=== PATIENT | female | born 1950 | race Caucasian/White ===

== ENCOUNTER 2017-01-03 10:43 | Emergency (ER) | payer BC ==
--- NOTE | 2017-01-03 12:03 | ER NURSING DOCUMENTATION ---
Nurse's Notes [facility] Name:Anastacia Mcfarlane Age:66 yrs Sex:Female :1950 Arrival Date:01/03/2017 Time:10:43 Bed6 Private MD:Melodie Acevedo Diagnosis:Colles Fracture Presentation: 01/03 10:46 Presenting complaint:. lc 10:46 Acuity: BIN 3 10:48 Presenting complaint: Patient states: fell on wood floors last nite playing soccer with lc grandchild and injuryed left wrist. Skin intact, does have deformity and CSM intact. Denies LOC, neck pain or other injury. Transition of care: Home. 10:48 Method Of Arrival: Walk In Triage Assessment: 10:52 General: Appears in no apparent distress, Behavior is cooperative, pleasant. Pain: Complains of pain in left wrist Pain currently is 1 out of 10 on a pain scale. At worst was 8 out of 10 on a pain scale. Quality of pain is described as aching, throbbing, Pain began 1 day ago. Neuro: Level of Consciousness is awake, alert, Oriented to person, place, time, event. Musculoskeletal: Circulation, motion, and sensation intact Capillary refill < 3 seconds Range of motion limited in left wrist Bony deformity noted of left wrist Swelling present in left wrist. Injury Description: R/O FX. Historical: - Allergies: No known drug Allergies; - Home Meds: 1. Triamterene-Hydrochlorothiazid Oral 2. Potassium Chloride Oral - PMHx: None; - PSHx: None; - Tetanus: < 10 years. - Ebola Screening: : No symptoms or risks identified at this time. . - Immunization history: Flu Vaccine < 1 year. - Social history: Smoking status: Patient states was never smoker of tobacco. Screenin:55 Infectious Disease Risk None. Abuse screen: Denies threats or abuse. Denies injuries lc from another. Nutritional screening: No deficits noted. Assessment: 10:55 See Triage Assessment done by same RN. Vital Signs: 10:54 BP 119 / 75; Pulse 72; Resp 16; Temp 98.2; Pulse Ox 94% on R/A; Weight 86.18 kg; Height 5 ft. 5 in. (165.10 cm); Pain 2/10; 12:00 Pain 1/10; lc 10:54 Body Mass Index 31.62 (86.18 kg, 165.10 cm) ED Course: 10:46 Patient arrived in ED. arc 10:46 Melodie Acevedo DO is Private Physician. arc 10:46 Mariaelena Hoffmann, RN is Primary Nurse. lc 10:47 Triage completed. lc 10:56 Valuables Remains with patient Patient has correct armband on for positive lc identification. Bed in low position. Call light in reach. Adult w/ patient. Ice pack to injury. Elevated left arm. 10:59 WRIST; [place] [id number] In Process Unspecified. EDMS 10:[address] [place] [id number] In Process Unspecified. EDMS 11:00 Port Xray Completed. pm1 11:04 Humberto Henriquez MD is Attending Physician. jm 11:09 WRIST; [place] [id number] Sent. pm1 11:[address] [place] [id number] Sent. pm1 11:35 Baron Gooden MD, Zoltan Elam DO is Referral Physician. jm 11:44 Assist Provider Splinting csm intact after. Sling applied to left arm. lc 11:55 WRIST; [place] [id number] In Process Unspecified. EDMS 11:[address] [place] [id number] In Process Unspecified. EDMS Administered Medications: No medications were administered Outcome: 11:42 Discharge ordered by . 12:00 Discharged to home ambulatory, with family. 12:00 Condition: good 12:00 Discharge Assessment: Patient awake, alert and oriented x 3. No cognitive and/or functional deficits noted. Patient verbalized understanding of disposition instructions. 12:00 Discharge instructions given to patient, significant other, Instructed on discharge instructions, follow up and referral plans. medication usage, [facility] Demonstrated understanding of instructions, medications, Prescriptions given X 1, for norco 12:03 Patient left the ED. Signatures: Dispatcher [employer] EDMS Mariaelena Hoffmann, SALVADOR RN Humberto Rodríguez MD MD jm McBride, Philisha pm1 Gracie Collazo, Reg Reg arc
--- NOTE | 2017-01-03 12:03 | ER PHYSICIAN DOCUMENTATION ---
Physician Documentation [facility] Name:Anastacia Mcfarlane Age:66 yrs Sex:Female :1950 Arrival Date:01/03/2017 Time:10:43 Bed6 Private MD:Melodie Acevedo ED, John Disposition: 01/03/17 11:42 Discharged to Home/Self Care. Impression: Colles Fracture. - Condition is Good. - Discharge Instructions: COLLES FRACTURE, No Reduction Required. - Prescriptions for Hydrocodone- Acetaminophen 5-325 mg Oral - take 1 tablet by ORAL route every 6 hours As needed; 15 tablet. - Medical Reconciliation form form. - Follow up: Baron Gooden MD, Zoltan Elam, ; When: Tomorrow; Reason: Continuance of care. - Problem is new. - Symptoms have improved. HPI: 01/03 11:00 This 66 yrs old Female presents to ER via Walk In with complaints of Wrist jm Injury. 11:00 The patient or guardian reports injury, pain, swelling, tenderness. The complaints jm affect the left wrist diffusely. Context: resulted from a fall, on an outstretched hand. Onset: The symptom(s)/episode began/occurred yesterday. Associated signs and symptoms: Pertinent negatives: numbness distally, tingling distally. The patient has not experienced similar symptoms in the past. Historical: - Allergies: No known drug Allergies; - Home Meds: 1. Triamterene-Hydrochlorothiazid Oral 2. Potassium Chloride Oral - PMHx: None; - PSHx: None; - Tetanus: < 10 years. - Ebola Screening: : No symptoms or risks identified at this time. . - Immunization history: Flu Vaccine < 1 year. - Social history: Smoking status: Patient states was never smoker of tobacco. ROS: 11:00 Constitutional: Negative for fever, malaise. jm 11:00 Cardiovascular: Positive for chest pain, orthopnea. 11:00 Respiratory: Negative for cough, shortness of breath. 11:00 MS/extremity: Positive for swelling, tenderness. 11:00 Skin: Positive for swelling. Exam: 11:00 Hand exam: ROM: limited active range of motion due to pain, limited passive range of jm motion due to pain. 11:00 Constitutional: The patient appears alert, awake. 11:00 Skin: Appearance: Color: pink, swelling, noted on the left wrist, no rash present. Vital Signs: 10:54 BP 119 / 75; Pulse 72; Resp 16; Temp 98.2; Pulse Ox 94% on R/A; Weight 86.18 kg; Height lc 5 ft. 5 in. (165.10 cm); Pain 2/10; 12:00 Pain 1/10; lc 10:54 Body Mass Index 31.62 (86.18 kg, 165.10 cm) Procedures: 11:00 Splinting: Splint applied to left arm and left wrist using splint. applied by nurse. timothy Examined by me, post splint application: neurovascular intact, brisk capillary refill noted, Patient tolerated well. MDM: 11:00 Differential diagnosis: closed fracture, contusion. Data reviewed: vital signs, nurses timothy notes, radiologic studies, and as a result, I will discharge patient. Counseling: I had a detailed discussion with the patient and/or guardian regarding: the historical points, exam findings, and any diagnostic results supporting the discharge/admit diagnosis, radiology results, the need for outpatient follow up, a orthopedic surgeon. Response to treatment: the patient's symptoms have markedly improved after treatment. ED course: Pt w intraarticular distal radius fx. Pt can f/u w Dr. Gooden this week. . 11:04 Patient medically screened. timothy 01/03 10:59 Order name: WRIST; [place] [id number] EDMA 01/03 10:59 Order name: [place] [id number] EDMS 01/05 11:19 Order name: WRIST; [place] [id number] EDMS Dispensed Medications: No medications were administered Signatures: Mariaelena Hoffmann, SALVADOR RN Humberto Rodríguez MD MD jm
--- NOTE | 2017-01-05 09:14 | RADIOLOGY REPORT ---
Four views of the left wrist demonstrate a comminuted, slightly impacted interarticular fracture of the left distal radius. There is no significant angulation. The ulna and carpus appear intact. No other abnormality is identified. IMPRESSION: Mildly impacted, comminuted interarticular fracture of the left distal radius. MTDD
== END 2017-01-03 12:03 | disposition home or self-care (01) ==
LOC: ER 10:43
DX: S52.532A Colles' fracture of left radius, initial encounter for closed fracture (principal); W19.XXXA Unspecified fall, initial encounter; Z79.899 Other long term (current) drug therapy
CPT/HCPCS: 29125; 99283

== ENCOUNTER 2017-01-05 08:29 | Day surgery (SDC) | payer BC ==
[2017-01-05] MEDS ORDERED: ceFAZolin 1 GM in NORMAL SALINE MINI-BAG+ 100 ML IV ONE (08:36)
[2017-01-05] MEDS ORDERED: ceFAZolin 1 GM/10 ML VIAL ONE (08:54)
[2017-01-05] MEDS ORDERED: LIDOCAINE HCL 1% 20 ML VIAL SUBCUT ONE ×3 (08:56→09:01)
[2017-01-05] MEDS ORDERED: MIDAZOLAM HCL 2 MG/2 ML SYR IV ONE ×2 (08:58→09:01)
[2017-01-05] MEDS ORDERED: HYDROmorphone HCL 1 MG/ML SYR IV PRN (08:59)
[2017-01-05] MEDS ORDERED: MORPHINE SULFATE 10 MG/ML SYR IV PRN ×2 (08:59→09:01)
[2017-01-05] MEDS ORDERED: FENTANYL 100 MCG/2 ML VIAL IV PRN ×2 (08:59→09:01)
[2017-01-05] MEDS ORDERED: LACTATED RINGERS 1,000 ML IV SCH ×5 (09:00→09:01)
[2017-01-05] MEDS ORDERED: ACETAMINOPHEN 1,000 MG/100 ML VIAL IV SCH ×3 (09:00→09:01)
[2017-01-05] MEDS ORDERED: FAMOTIDINE IN SALINE, ISO-OSM 20 MG/50 ML PIGGYBACK IV SCH ×2 (09:00→09:01)
[2017-01-05] MEDS ORDERED: MIDAZOLAM HCL 2 MG/2 ML VIAL ONE (09:15)
[2017-01-05] MEDS ORDERED: BUPIVACAINE HCL/PF 0.25% 10 ML VIAL INJ ONE (09:18)
[2017-01-05] MEDS ORDERED: ONDANSETRON HCL 4 MG/2 ML VIAL ONE (09:28)
[2017-01-05] MEDS ORDERED: KETOROLAC TROMETHAMINE 30 MG/ML VIAL ONE (09:29)
[2017-01-05] MEDS ORDERED: ROCURONIUM BROMIDE 50 MG/5 ML VIAL IV ONE (09:29)
[2017-01-05] MEDS ORDERED: DEXAMETHASONE 4 MG/ML VIAL ONE ×2 (09:29→10:44)
[2017-01-05] MEDS ORDERED: SUGAMMADEX SODIUM 200 MG/2 ML VIAL IV ONE (09:29)
[2017-01-05] MEDS ORDERED: SUCCINYLCHOLINE CHLORIDE 200 MG/10 ML VIAL ONE (09:29)
[2017-01-05 11:45] VITALS: TEMP 97
[2017-01-05] MEDS: HYDROmorphone HCL 1 MG/ML SYR IV PRN ×2 (11:59→12:07)
[2017-01-05] MEDS ORDERED: HYDROmorphone HCL 1 MG/ML SYR ONE (12:00)
[2017-01-05 12:15] VITALS: RESP 15
[2017-01-05 12:33] VITALS: BP 144/82; PULSE 56; O2SAT 93
--- NOTE | 2017-01-05 15:17 | OPERATIVE REPORT ---
DATE OF SURGERY: 01/05/17 SURGEON: Baron Gooden MD PREOPERATIVE DIAGNOSIS: Comminuted intra-articular fracture of the left distal radius. POSTOPERATIVE DIAGNOSIS: Comminuted intra-articular fracture of the left distal radius. PROCEDURE PERFORMED: Open reduction, internal fixation. IMPLANTS USED: Acumed locking volar distal radius plate. INDICATIONS FOR PROCEDURE: The patient is a 66-year-old female who fell onto her left nondominant outstretched hand, sustaining a comminuted intra-articular fracture of the distal radius. Due to the clearly unstable nature of the fracture, the patient was taken to the operating room for open reduction and internal fixation. DESCRIPTION OF PROCEDURE: After informed consent was obtained, the patient was taken to the operating room where she placed in the supine position under general anesthesia. After adequate anesthesia was achieved, the left hand and upper extremity were prepped and draped in the usual sterile fashion, the limb was elevated and gently milked but not exsanguinated, a tourniquet was then inflated about the proximal arm to 250 mmHg. A longitudinal incision was then performed over the flexor carpi radialis tendon, and then the underlying soft tissue was gently but sharply dissected down through the tendon sheath. The tendon was then retracted and the forearm fascia was gently incised. Blunt dissection was then carried out down to the pronator quadratus which was released from its tendinous attachment radially, and retracted ulnarly. The fracture site was then exposed, and a provisional closed reduction had already been performed. We gently debrided the fracture and then irrigated the wound with copious amounts of sterile saline. C-arm fluoroscopy was used to verify proper alignment of the fracture, and then a plate was positioned on the volar aspect of the distal radius. Once proper position was achieved it was provisionally held using K-wires. It was then secured proximally using a 3.5 mm cortical screw. Again C-arm fluoroscopy was used to verify proper position of the plate and alignment of the fracture. It was then secured distally using the 2.3 mm screws, using C-arm fluoroscopy to check the length of each screw as it was placed. Once it was completely secured distally, the plate was then secured proximally using 2 additional 3.5 mm screws. Once again the alignment was checked with C-arm fluoroscopy and then the wound was irrigated once again with copious amounts of sterile saline. The pronator quadratus was then reapproximated using 0 Vicryl, and then the subcutaneous tissue was closed using 3-0 Vicryl. The skin was then closed using 4-0 nylon in a running fashion. A sterile gauze dressing and well padded volar splint were then applied. The patient tolerated the procedure well and was taken to the recovery room in stable condition. ESTIMATED BLOOD LOSS: Minimal. FLUIDS: Lactated Ringers, 900 mL. TOURNIQUET TIME: 63 minutes. MTDD
--- NOTE | 2017-01-07 09:05 | RADIOLOGY REPORT ---
Two limited views of the left wrist from the C-Arm in the operating room are compared with prior films dated 01/03/2017. There has been interval open reduction and internal fixation of the distal radius fracture which is secured with a plate and multiple screws. No other change is identified. IMPRESSION: Interval open reduction and internal fixation of the left distal radius fracture. [facility]
--- NOTE | 2017-01-15 15:18 | PREOPERATIVE H&P ---
History of Present Illness (Baron Gooden MD; 01/04/2017 2:51 PM) History of present illness: The patient is a 66-year-old female who was playing soccer indoors with one of her grandchildren, when she slipped on the floor and landed on her left nondominant outstretched hand. She had immediate pain but did not seek treatment right away. The wrist is still bothering her the next morning, so she went into the emergency department at which time it was noted that she had an intra-articular fracture of her distal radius. She was placed in a sugar tong splint at that time and has come in for further evaluation and management. She denies any other injuries associated with her fall. Allergies (Baron Gooden MD; 01/04/2017 2:44 PM) No Known Drug Allergies Family History (Baron Gooden MD; 01/04/2017 2:44 PM) *NEGATIVE for Family History of Diabetes or thyroid disease. Colon Cancer Maternal grandfather. Carotid Disease (I77.9) First Degree Relatives. Father (carotid endarterectomy at age 77). Coronary Artery Disease First Degree Relatives. Mother (diagnosed at age 76). Social History (Baron Gooden MD; 01/04/2017 2:44 PM) Tobacco use Never smoker. Alcohol use Drinks Rarely. 1-2 drinks per week on the weekend. 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. Exercise 3-4 times per week (lifting weights, walking). Marital status . Alber. No Drug Use Nutrition Weight Watcher's Diet. Residency Status Full-time [place] resident. Medication History (Baron Gooden MD; 01/04/2017 2:44 PM) Triamterene-HCTZ (75-50MG Tablet, 1 (one) Oral daily, Taken starting 11/20/2015 ) Active. Adult Aspirin EC Low Strength ([address], 1 Oral daily, Taken starting 04/04) Active. Multi-Vitamin (1 Oral, Taken starting 04/04/2008) Active. (Centrum Silver) Zolpidem Tartrate (10MG Tablet, (one half) to 1 (one) Oral at bedtime, as needed, Taken starting 12/19/2013) Discontinued. Klor-Con 10 (10MEQ Tablet ER, 1 (one) Oral daily, Taken starting 04/08/2016) Active. Omeprazole (20MG Capsule DR, 1 Oral two times daily, Taken starting 06/13/2014 ) Active. ZyrTEC Allergy (10MG Capsule, 1 (one) Tablet Oral daily, Taken starting 2013) Active. Phentermine HCl (30MG Capsule, 1 (one) Oral 1 po daily (1-2 h after breakfast) , Taken starting 03/12/2016) Active. Red Yeast Rice (Oral daily) Specific dose unknown - Active. Vitamin D3 (1000UNIT Tablet, Oral daily) Active. Melatonin (Oral nightly as needed) Specific dose unknown - Discontinued. Ibuprofen (400MG Tablet, 2 Oral as needed) Discontinued. Medications Reconciled Vitals (Baron Gooden MD; 01/04/2017 2:42 PM) 01/04/2017 2:40 PM Weight: 195 lb Height: 65in Weight was reported by patient. Body Surface Area: 1.96 m Body Mass Index: 32.45 kg/m Temp.: 98F Pulse: 68 (Regular) Resp.: 16 (Unlabored) BP: 132/78 (Sitting, Left Arm, Standard) Physical Exam (Baron Gooden MD; 01/04/2017 2:52 PM) General Well-appearing female, in no apparent distress, alert and oriented 3. Musculoskeletal Physical examination of the left upper extremity reveals that she is in a sugar tong splint. She has mild swelling in her fingers but moves them well. Her sensation is intact throughout to light touch. X-ray evaluation: Plain radiographs of the wrist are obtained in the emergency department reveal a comminuted intra-articular fracture of the distal radius. There is a coronal split on the lateral view with 3-4 mm of separation. Also there is a punch lesion on the PA view also with about 3 mm of separation. Assessment & Plan (Baron Gooden MD; 01/04/2017 2:53 PM) Fracture of radius, distal, left, closed (S52.502A) Current Plans OPTX FX distal RAD INTRA-ARTICUL, with fixation of 2 fragments (88263) (left) Note:: Assessment: Comminuted intra-articular fracture of the left distal radius. Plan: We discussed the treatment of her injury, and due to the unstable nature I recommended open reduction and internal fixation. The patient does wish to proceed with that plan. Today we discussed the operation, risks, and indications. The risks of the procedure include but are not limited to: Infection, blood vessel or nerve injury, persistent stiffness or loss motion of the wrist, or failure fixation. The patient hasn't noticed the risks and desires to proceed as planned. Signed by Baron Gooden MD (01/04/2017 2:54 PM) YANG
== END 2017-01-05 12:40 | disposition home or self-care (01) ==
LOC: SDS 08:29
PROVIDERS: ATTEND Orthopaedic Surgery
DX: S52.572A Other intraarticular fracture of lower end of left radius, initial encounter for closed fracture (principal); W01.0XXA Fall on same level from slipping, tripping and stumbling without subsequent striking against object, initial encounter; G62.9 Polyneuropathy, unspecified; E78.5 Hyperlipidemia, unspecified; K21.9 Gastro-esophageal reflux disease without esophagitis; E78.00 Pure hypercholesterolemia, unspecified; Z79.899 Other long term (current) drug therapy
CPT/HCPCS: 76001; C1713; J0690; J1170; J1885; J2250; J2405; J2550